=== PATIENT | male | born 1950 | race Caucasian/White ===

== ENCOUNTER 2018-03-29 08:32 | Inpatient (IN) | payer OTHER ==
[~2018-03-29] VITALS: Ht 175.3 cm; Wt 95.3 kg
[2018-03-29] MEDS ORDERED: ATORVASTATIN CA40 MG PO (09:15)
[2018-03-29] MEDS ORDERED: GABAPENTIN800 MG PO (09:16)
[2018-03-29] MEDS ORDERED: LASIX20 MG PO (09:16)
[2018-03-29] MEDS ORDERED: CYMBALTA60 MG PO (09:16)
[2018-03-29] MEDS ORDERED: ALTACE10 MG PO (09:17)
[2018-03-29] MEDS ORDERED: TOPROL XL50 M1 PO (09:17)
[2018-03-29] MEDS ORDERED: GLIMEPIRIDE4 MG PO (09:17)
[2018-03-29] MEDS ORDERED: LANTUS SOL100 UNIT/1 (09:18)
[2018-04-01] MEDS ORDERED: DOCUSATE SODIU100 MG PO (15:22)
[2018-04-01] MEDS ORDERED: GABAPENTIN800 MG PO (15:22)
[2018-04-01] MEDS ORDERED: PERCOCET 5-3251 EACH PO (15:23)
[2018-04-01] MEDS ORDERED: CLONAZEPAM1 MG PO (15:23)
[2018-04-01] MEDS ORDERED: AMOX-CLAV 875-1 EACH PO (15:23)
== END 2018-04-02 13:34 | disposition home or self-care (01) | DRG 460 ==
LOC: PED 04-01 04:35 → O/R 04-01 04:35 → SURH 04-01 08:27 → PED 04-01 16:53
PROVIDERS: Orthopaedic Surgery Orthopaedic Surgery of the Spine
PROC: 0SG10A0 Fusion of 2 or more Lumbar Vertebral Joints with Interbody Fusion Device, Anterior Approach, Anterior Column, Open Approach (ICD-10-PCS; 2018-04-01)
PROC: 0SG30AJ Fusion of Lumbosacral Joint with Interbody Fusion Device, Posterior Approach, Anterior Column, Open Approach (ICD-10-PCS; 2018-04-01)
PROC: 0ST20ZZ Resection of Lumbar Vertebral Disc, Open Approach (ICD-10-PCS; 2018-04-01)
PROC: 0ST40ZZ Resection of Lumbosacral Disc, Open Approach (ICD-10-PCS; 2018-04-01)
PROC: 07DS3ZZ Extraction of Vertebral Bone Marrow, Percutaneous Approach (ICD-10-PCS; 2018-04-01)
PROC: 0SG10A0 Fusion of 2 or more Lumbar Vertebral Joints with Interbody Fusion Device, Anterior Approach, Anterior Column, Open Approach (ICD-10-PCS; principal; 2018-04-01 12:30)
DX: M47.816 Spondylosis without myelopathy or radiculopathy, lumbar region (principal); M47.27 Other spondylosis with radiculopathy, lumbosacral region; M51.17 Intervertebral disc disorders with radiculopathy, lumbosacral region; M48.07 Spinal stenosis, lumbosacral region

== ENCOUNTER 2019-07-08 11:45 | Inpatient (IN) | payer OTHER ==
[~2019-07-08] VITALS: Ht 175.3 cm; Wt 9.1 kg
[~2019-07-08 11:45] MED LIST: ALTACE10 MG PO; AMOX-CLAV 875-1 EACH PO; ATORVASTATIN CA40 MG PO; CLONAZEPAM1 MG PO; CYMBALTA60 MG PO; DOCUSATE SODIU100 MG PO; GABAPENTIN800 MG PO; GLIMEPIRIDE4 MG PO; LANTUS SOL100 UNIT/1; LASIX20 MG PO; PERCOCET 5-3251 EACH PO; TOPROL XL50 M1 PO
[2019-07-18] MEDS ORDERED: CODE1TAB37 PO (13:20)
[2019-07-18] MEDS ORDERED: DOCUSATE SODIU100 MG PO (13:21)
[2019-07-18] MEDS ORDERED: CLONAZEPAM0.5 MG PO (13:21)
== END 2019-07-19 11:15 | disposition home or self-care (01) | DRG 455 ==
LOC: O/R 11:45 → SURH 07-18 04:50
PROVIDERS: ADMIT Orthopaedic Surgery Orthopaedic Surgery of the Spine
PROC: 0RG10K1 Fusion of Cervical Vertebral Joint with Nonautologous Tissue Substitute, Posterior Approach, Posterior Column, Open Approach (ICD-10-PCS; 2019-07-18)
PROC: 0RB30ZZ Excision of Cervical Vertebral Disc, Open Approach (ICD-10-PCS; 2019-07-18)
PROC: 0RG20A0 Fusion of 2 or more Cervical Vertebral Joints with Interbody Fusion Device, Anterior Approach, Anterior Column, Open Approach (ICD-10-PCS; principal; 2019-07-18 07:00)
DX: M50.021 Cervical disc disorder at C4-C5 level with myelopathy (principal); M48.02 Spinal stenosis, cervical region; I10 Essential (primary) hypertension; E11.9 Type 2 diabetes mellitus without complications; Z79.4 Long term (current) use of insulin
CPT/HCPCS: 22864; 0095T ×2; 22551; 22552; 22845